=== PATIENT | male | born 1995 | race American Indian/Alaskan Native ===

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

== ENCOUNTER 2017-05-25 17:42 | Emergency (ER) | payer MEDICAID ==
[2017-05-25 18:09] VITALS: BP 121/68
--- NOTE | 2017-05-25 19:47 | Emergency Department Report ---
Vomiting/Diarrhea - HPI Chief Complaint: Nausea/Vomiting/Diarrhea Stated Complaint: STOMACH VIRUS Time Seen by Provider: 05/25/17 19:28 Duration: 2 Days Severity: mild, moderate Nausea/Vomiting Severity: None Diarrhea Severity: Mild Pain Location: Generalized Pain Severity: Mild Symptoms: Yes Watery Diarrhea, Yes Able to Tolerate Fluids, No Bloody diarrhea, No Fever, No Recent Unusual Foods, No Recent Untreated Water, No Recent use of Antibiotics, No Family w/ Similar Symptoms, No Contacts w/ Similar Symptoms, No Rash, No Hematuria, No Recent URI Symptoms ED Review of Systems ROS: Stated complaint: STOMACH VIRUS Other details as noted in HPI Comment: All other systems reviewed and negative ED Past Medical Hx - Past Medical History Previous Medical History?: No - Surgical History Past Surgical History?: No - Social History Smoking Status: Never Smoker Substance Use Type: None - Medications Home Medications: Home Medications Medication Instructions Recorded Confirmed Last Taken Type Ibuprofen [Motrin 800 MG tab] 800 mg PO Q8HR PRN #25 tablet 01/25/16 Unknown Rx Ibuprofen [Motrin] 800 mg PO Q8HR PRN #15 tablet 05/30/16 Unknown Rx traMADol [Ultram 50 MG tab] 50 mg PO Q6HR PRN #15 tablet 05/30/16 Unknown Rx Dicyclomine [Bentyl] 10 mg PO QID 2 Days capsule 05/25/17 Unknown Rx Diphenoxylate HCl/Atropine 1 each PO BID #4 tablet 05/25/17 Unknown Rx [Lomotil 2.5-0.025 mg Tablet] Vomiting Diarrhea Exam - Exam General: Vital signs noted. No distress. Alert and acting appropriately. HEENT: Yes Moist Mucous Membranes, No Pharyngeal Erythema, No Pharyngeal Exudates, No Rhinorrhea, No Conjuctival Injection, No Frontal Tenderness, No Maxillary Tenderness Neck: No Adenopathy, No Rigidity Lungs: Yes Clear Lung Sounds, Yes Good Air Exchange, No Wheezes, No Stridor, No Cough, No Nasal Flaring, No Retractions, No Use of Accessory Muscles Heart exam: Regular: Yes, Murmur: No, Tachycardia: No Abdomen: Tenderness: No, Peritoneal Signs: No, Distention: No, Hyperactive Bowel sounds: No Skin exam: Rash: No, Edema: No, Normal turgor: Yes Neurologic: Alert and oriented, no deficits. Musculoskeletal: Unremarkable. ED Course Vital Signs 05/25/17 18:04 Temperature 98.4 F Pulse Rate 70 Respiratory 18 Rate Blood Pressure 121/68 O2 Sat by Pulse 98 Oximetry ED Medical Decision Making - Medical Decision Making Patient with a very mild gastroenteritis patient be given Bentyl and Lomotil and be discharged home Critical care attestation.: If time is entered above; I have spent that time in minutes in the direct care of this critically ill patient, excluding procedure time. ED Disposition Clinical Impression: Viral gastroenteritis Disposition: DC-01 TO HOME OR SELFCARE Is pt being admited?: No Does the pt Need Aspirin: No Condition: Stable Instructions: Gastroenteritis (ED) Prescriptions: Dicyclomine [Bentyl] 10 mg PO QID 2 Days capsule Diphenoxylate HCl/Atropine [Lomotil 2.5-0.025 mg Tablet] 1 each PO BID #4 tablet Referrals: PRIMARY CARE, [Primary Care Provider] - 3-5 Days Forms: Work/School Release Form(ED)
== END 2017-05-25 19:57 | disposition home or self-care (01) ==
LOC: ED 17:42
DX: A08.39 Other viral enteritis (principal)
CPT/HCPCS: 99282

== ENCOUNTER 2018-04-16 13:32 | Emergency (ER) | payer MEDICAID ==
[2018-04-16 13:37] VITALS: BP 144/86
--- NOTE | 2018-04-16 14:46 | Emergency Department Report ---
ED Male HPI - General Chief complaint: Urogenital-Male Stated complaint: POSS STD Time Seen by Provider: 04/16/18 14:14 Source: patient Mode of arrival: Ambulatory Limitations: No Limitations - History of Present Illness Initial comments: This is a 22-year-old male nontoxic, well nourished in appearance, no acute signs of distress presents to the ED with c/o of mild dysuria. Patient denies any testicular pain or swelling. Patient denies any penile discharge. Patient stated he is concerned about STD. Patient denies any penile ulcers or lesions. Patient denies any nausea, vomiting, chest pain, shortness of breathe, fever, chills, headache, back pain, numbness, tingling, stiff neck. Patient denies any other urinary symptoms. Patient denies any allergies or PMH. MD Complaint: dysuria -: week(s) Location: penis Radiation: none Severity: mild Severity scale (0 -10): 3 Consistency: constant Improves with: none Worsens with: urination dysuria. denies: discharge, swelling, mass, rash, urinary retention, blood in urine, fever, nausea/vomiting, incontinence - Related Data Previous Rx's Medication Instructions Recorded Last Taken Type Ibuprofen [Motrin 800 MG tab] 800 mg PO Q8HR PRN #25 tablet 01/25/16 Unknown Rx Ibuprofen [Motrin] 800 mg PO Q8HR PRN #15 tablet 05/30/16 Unknown Rx traMADol [Ultram 50 MG tab] 50 mg PO Q6HR PRN #15 tablet 05/30/16 Unknown Rx Dicyclomine [Bentyl] 10 mg PO QID 2 Days capsule 05/25/17 Unknown Rx Diphenoxylate HCl/Atropine 1 each PO BID #4 tablet 05/25/17 Unknown Rx [Lomotil 2.5-0.025 mg Tablet] Allergies Allergy/AdvReac Type Severity Reaction Status Date / Time No Known Allergies Allergy Verified 05/25/17 18:04 ED Review of Systems ROS: Stated complaint: POSS STD Other details as noted in HPI Constitutional: denies: chills, fever Eyes: denies: eye pain, eye discharge, vision change ENT: denies: ear pain, throat pain Respiratory: denies: cough, shortness of breath, wheezing Cardiovascular: denies: chest pain, palpitations Endocrine: no symptoms reported Gastrointestinal: denies: abdominal pain, nausea, diarrhea Genitourinary: dysuria. denies: urgency, frequency, hematuria Musculoskeletal: denies: back pain, joint swelling, arthralgia Skin: denies: rash, lesions Neurological: denies: headache, weakness, paresthesias Psychiatric: denies: anxiety, depression Hematological/Lymphatic: denies: easy bleeding, easy bruising ED Past Medical Hx - Past Medical History Previous Medical History?: No - Surgical History Past Surgical History?: No - Social History Smoking Status: Never Smoker Substance Use Type: None - Medications Home Medications: Home Medications Medication Instructions Recorded Confirmed Last Taken Type Ibuprofen [Motrin 800 MG tab] 800 mg PO Q8HR PRN #25 tablet 01/25/16 Unknown Rx Ibuprofen [Motrin] 800 mg PO Q8HR PRN #15 tablet 05/30/16 Unknown Rx traMADol [Ultram 50 MG tab] 50 mg PO Q6HR PRN #15 tablet 05/30/16 Unknown Rx Dicyclomine [Bentyl] 10 mg PO QID 2 Days capsule 05/25/17 Unknown Rx Diphenoxylate HCl/Atropine 1 each PO BID #4 tablet 05/25/17 Unknown Rx [Lomotil 2.5-0.025 mg Tablet] ED Physical Exam - General Limitations: No Limitations General appearance: alert, in no apparent distress - Head Head exam: Present: atraumatic, normocephalic - Neck Neck exam: Present: normal inspection, full ROM - Extremities Exam Extremities exam: Present: normal inspection, full ROM - Back Exam Back exam: Present: normal inspection, full ROM - Neurological Exam Neurological exam: Present: alert, oriented X3 - Psychiatric Psychiatric exam: Present: normal affect, normal mood - Skin Skin exam: Present: warm, dry, intact, normal color. Absent: rash ED Course Vital Signs 04/16/18 13:35 Temperature 98 F Pulse Rate 78 Respiratory 16 Rate Blood Pressure 144/86 O2 Sat by Pulse 100 Oximetry - Reevaluation(s) Reevaluation #1: 04/16/18 14:45 Patient is speaking in full sentences with no signs of distress noted. ED Medical Decision Making - Medical Decision Making This is a 22-year-old male that presents with possible STD and dysuria. Patient is stable was examined by me. There is no abdominal tenderness. UA obtained. Gonorrhea chlamydia pending. Patient was instructed to return in 3-5 days for GC results. Patient wanted empirical treatment so patient received 250mg Rocephin and 1 g of azithromycin by mouth. Patient was instructed to Follow-up with a primary care doctor in 3-5 days or if symptoms worsen and continue return to emergency room as soon as possible. At time of discharge, the patient does not seem toxic or ill in appearance. No acute signs of distress noted. Patient agrees to discharge treatment plan of care. No further questions noted by the patient. Critical care attestation.: If time is entered above; I have spent that time in minutes in the direct care of this critically ill patient, excluding procedure time. ED Disposition Clinical Impression: Possible exposure to STD, Dysuria Disposition: - TO HOME OR SELFCARE Is pt being admited?: No Does the pt Need Aspirin: No Condition: Stable Instructions: Safe Sex (ED) Additional Instructions: Follow-up with a primary care doctor in 3-5 days or if symptoms worsen and continue return to emergency room as soon as possible. Return in 3-5 days for gonorrhea and chlamydia results. Referrals: PRIMARY CAREMD [Referring] - 3-5 Days CHARLES RO MD [Staff Physician] - 3-5 Days [facility] [Outside] - 3-5 Days [facility] [Outside] - 3-5 Days Forms: Work/School Release Form(ED)
[2018-04-16 14:48] LABS: Bacteria,Urine 1+ /HPF (Negative); Bilirubin,Urine NEG (Negative); Blood,Urine NEG (Negative); Color,Urine Yellow (Yellow); Mucus,Urine FEW /HPF; Protein,Urine <15 mg/dL mg/dL (Negative)
[2018-04-16] MEDS ORDERED: XYLOCAINE 1% MPF 5 mL INFILTRATI ONE (14:50)
[2018-04-16] MEDS ORDERED: ZITHROMAX PO ONE (14:50)
[2018-04-16] MEDS ORDERED: ROCEPHIN IM ONE (14:50)
== END 2018-04-16 15:14 | disposition home or self-care (01) ==
LOC: ED 13:32
DX: R30.0 Dysuria (principal)
CPT/HCPCS: 81001; 87086; 87591; 96372; 99283; J0696

== ENCOUNTER 2018-10-16 12:54 | Emergency (ER) | payer MEDICAID ==
--- NOTE | 2018-10-16 13:20 | Emergency Department Report ---
Blank Doc - Documentation Documentation: This is a 23-year-old male that presents with right hand pain after playing ba sketball. This initial assessment/diagnostic orders/clinical plan/treatment(s) is/are subject to change based on patient's health status, clinical progression and re- assessment by fellow clinical providers in the ED. Further treatment and workup at subsequent clinical providers discretion. Patient/guardians urged not to elope from the ED as their condition may be serious if not clinically assessed and managed. Initial orders include: 1- Patient sent to [facility] for further evaluation and treatment 2- xray
[2018-10-16 13:23] VITALS: BP 119/76
--- NOTE | 2018-10-16 13:58 | XRay Report ---
RIGHT HAND, 3 VIEWS INDICATION: Pain, hurt while playing basketball.. COMPARISON: None. IMPRESSION: Normal bone mineralization. A small bony fragment is noted adjacent to the base of the m iddle phalanx of the second digit. This could represent a chip or avulsion fracture. This may be microsoft developer kanu as it appears well-corticated. Please correlate for point tenderness. The remaining bony structur es are intact and unremarkable. No significant DJD. The soft tissues are unremarkable. Signer Name: Dedrick Gómez Jr, MD Signed: 10/16/2018 1:54 PM Workstation Name: [id number]
--- NOTE | 2018-10-16 14:23 | Emergency Department Report ---
ED Extremity Problem HPI - General Chief complaint: Extremity Injury, Upper Stated complaint: R HAND/FINGER PAIN Time Seen by Provider: 10/16/18 13:19 Source: patient Mode of arrival: Ambulatory Limitations: No Limitations - History of Present Illness Initial comments: Avril is a 23-year-old male who injured his right hand playing basketball on yesterday. He has pain at the second MCP. Mild swelling. No laceration. No other injuries. Mild pain. Gradual onset. MD Complaint: extremity pain, extremity swelling -: Gradual Location: right, upper extremity History of Same: No Radiation: none Quality: aching Consistency: constant Worsens with: palpation - Related Data Previous Rx's Medication Instructions Recorded Last Taken Type Ibuprofen [Motrin 800 MG tab] 800 mg PO Q8HR PRN #25 tablet 01/25/16 Unknown Rx Ibuprofen [Motrin] 800 mg PO Q8HR PRN #15 tablet 05/30/16 Unknown Rx traMADol [Ultram 50 MG tab] 50 mg PO Q6HR PRN #15 tablet 05/30/16 Unknown Rx Dicyclomine [Bentyl] 10 mg PO QID 2 Days capsule 05/25/17 Unknown Rx Diphenoxylate HCl/Atropine 1 each PO BID #4 tablet 05/25/17 Unknown Rx [Lomotil 2.5-0.025 mg Tablet] Allergies Allergy/AdvReac Type Severity Reaction Status Date / Time No Known Allergies Allergy Verified 10/16/18 13:02 ED Review of Systems ROS: Stated complaint: R HAND/FINGER PAIN Other details as noted in HPI Constitutional: denies: fever, malaise Skin: denies: rash, lesions Neurological: denies: numbness, paresthesias Hematological/Lymphatic: denies: easy bleeding ED Past Medical Hx - Past Medical History Previous Medical History?: No - Surgical History Past Surgical History?: No - Social History Smoking Status: Never Smoker Substance Use Type: Alcohol - Medications Home Medications: Home Medications Medication Instructions Recorded Confirmed Last Taken Type Ibuprofen [Motrin 800 MG tab] 800 mg PO Q8HR PRN #25 tablet 01/25/16 Unknown Rx Ibuprofen [Motrin] 800 mg PO Q8HR PRN #15 tablet 05/30/16 Unknown Rx traMADol [Ultram 50 MG tab] 50 mg PO Q6HR PRN #15 tablet 05/30/16 Unknown Rx Dicyclomine [Bentyl] 10 mg PO QID 2 Days capsule 05/25/17 Unknown Rx Diphenoxylate HCl/Atropine 1 each PO BID #4 tablet 05/25/17 Unknown Rx [Lomotil 2.5-0.025 mg Tablet] ED Physical Exam - General Limitations: No Limitations General appearance: alert, in no apparent distress - Expanded Upper Extremity Exam Right Forearm Wrist exam: Present: normal inspection, full ROM. Absent: tenderness, swelling, abrasion Hand Wrist exam: Present: other (tenderness at the second MCP no tenderness throughout the digits otherwise no deformity no laceration. Range of motion at MCP and DIP PIP of all digits.) - Neurological Exam Neurological exam: Present: alert, oriented X3 - Psychiatric Psychiatric exam: Present: normal affect, normal mood ED Course Vital Signs 10/16/18 13:19 Temperature 98.8 F Pulse Rate 75 Respiratory 18 Rate Blood Pressure 119/76 O2 Sat by Pulse 99 Oximetry ED Medical Decision Making - Medical Decision Making hand sprain finger sprain, no indication of acute fracture although bone avulsion was seen on radiographs according to radiology report. Patient had a finger aluminum splint applied to the second digit with Cortez wrap. Recommended rest and ice. Critical care attestation.: If time is entered above; I have spent that time in minutes in the direct care of this critically ill patient, excluding procedure time. ED Disposition Clinical Impression: Finger sprain, Hand sprain Disposition: - TO HOME OR SELFCARE Is pt being admited?: No Does the pt Need Aspirin: No Condition: Stable Instructions: Jammed Finger (ED), Finger Sprain (ED) Referrals: SHARAN PETTIT MD [Primary Care Provider] - 3-5 Days Forms: Work/School Release Form(ED)
== END 2018-10-16 14:35 | disposition home or self-care (01) ==
LOC: ED 12:54
DX: S63.650A Sprain of metacarpophalangeal joint of right index finger, initial encounter (principal); Z79.899 Other long term (current) drug therapy; X58.XXXA Exposure to other specified factors, initial encounter; Y93.67 Activity, basketball; Y92.89 Other specified places as the place of occurrence of the external cause; Y99.8 Other external cause status
CPT/HCPCS: 99283

== ENCOUNTER 2020-03-17 12:19 | Emergency (ER) | payer SELFPAY ==
[2020-03-17 12:34] VITALS: BP 141/85
--- NOTE | 2020-03-17 13:25 | Emergency Department Report ---
Blank Doc - Documentation Documentation: 24-year-old male that presents with chest tightness and pain. Stated had a trip and fall on ice and landed to chest. This initial assessment/diagnostic orders/clinical plan/treatment(s) is/are subject to change based on patient's health status, clinical progression and re-assessment by fellow clinical providers in the ED. Further treatment and workup at subsequent clinical providers discretion. Patient/guardians urged not to elope from the ED as their condition may be serious if not clinically assessed and managed. Initial orders include: 1- Patient sent to [facility] for further evaluation and treatment 2- CXR 3- EKG
--- NOTE | 2020-03-17 15:17 | XRay Report ---
CHEST 2 VIEWS INDICATION / CLINICAL INFORMATION: Chest pain. COMPARISON: None available. FINDINGS: SUPPORT DEVICES: None. HEART / MEDIASTINUM: No significant abnormality. LUNGS / PLEURA: No significant pulmonary or pleural abnormality. No pneumothorax. ADDITIONAL FINDINGS: No significant additional findings. IMPRESSION: 1. No acute abnormality of the chest. Signer Name: Miguel Samuel MD Signed: 03/17/2020 3:13 PM Workstation Name: [id number]
--- NOTE | 2020-03-17 15:39 | Emergency Department Report ---
ED General Adult HPI - General Chief complaint: Multiple Trauma Stated complaint: CHEST PAIN Time Seen by Provider: 03/17/20 13:23 Source: patient Mode of arrival: Ambulatory Limitations: No Limitations - History of Present Illness Initial comments: 24-year-old male presenting with chief complaint of chest pain, gradual onset over the past week. The patient states that about 1 week ago he slipped on the ice while trying to connect a trailer and landed on his chest and right shoulder. He states that his right shoulder was sore for a day or 2 but that has resolved and now he just has intermittent soreness throughout the middle of his chest. He states that it does not occur very often but he primarily notices it when he is moving certain ways especially at night. Denies any difficulty in breathing, fevers, cough or any other related symptoms. Severity is mild. - Related Data Previous Rx's Medication Instructions Recorded Last Taken Type Ibuprofen [Motrin 800 MG tab] 800 mg PO Q8HR PRN #25 tablet 01/25/16 Unknown Rx Ibuprofen [Motrin] 800 mg PO Q8HR PRN #15 tablet 05/30/16 Unknown Rx traMADoL [Ultram 50 MG tab] 50 mg PO Q6HR PRN #15 tablet 05/30/16 Unknown Rx Dicyclomine [Bentyl] 10 mg PO QID 2 Days capsule 05/25/17 Unknown Rx Diphenoxylate HCl/Atropine 1 each PO BID #4 tablet 05/25/17 Unknown Rx [Lomotil 2.5-0.025 mg Tablet] Allergies Allergy/AdvReac Type Severity Reaction Status Date / Time No Known Allergies Allergy Verified 10/16/18 13:02 ED Review of Systems ROS: Stated complaint: CHEST PAIN Other details as noted in HPI Comment: All other systems reviewed and negative Cardiovascular: as per HPI ED Past Medical Hx - Past Medical History Previous Medical History?: No - Surgical History Past Surgical History?: No - Social History Smoking Status: Never Smoker Substance Use Type: None - Medications Home Medications: Home Medications Medication Instructions Recorded Confirmed Last Taken Type Ibuprofen [Motrin 800 MG tab] 800 mg PO Q8HR PRN #25 tablet 01/25/16 Unknown Rx Ibuprofen [Motrin] 800 mg PO Q8HR PRN #15 tablet 05/30/16 Unknown Rx traMADoL [Ultram 50 MG tab] 50 mg PO Q6HR PRN #15 tablet 05/30/16 Unknown Rx Dicyclomine [Bentyl] 10 mg PO QID 2 Days capsule 05/25/17 Unknown Rx Diphenoxylate HCl/Atropine 1 each PO BID #4 tablet 05/25/17 Unknown Rx [Lomotil 2.5-0.025 mg Tablet] ED Physical Exam - General Limitations: No Limitations General appearance: alert, in no apparent distress - Head Head exam: Present: atraumatic, normocephalic - Eye Eye exam: Present: normal appearance - ENT ENT exam: Present: mucous membranes moist - Neck Neck exam: Present: normal inspection - Respiratory Respiratory exam: Present: normal lung sounds bilaterally. Absent: respiratory distress, wheezes - Cardiovascular Cardiovascular Exam: Present: regular rate, normal rhythm. Absent: systolic murmur, diastolic murmur, rubs, gallop - GI/Abdominal GI/Abdominal exam: Present: soft, normal bowel sounds - Rectal Rectal exam: Present: deferred - Extremities Exam Extremities exam: Present: normal inspection - Back Exam Back exam: Present: normal inspection - Neurological Exam Neurological exam: Present: alert, oriented X3 - Psychiatric Psychiatric exam: Present: normal affect, normal mood - Skin Skin exam: Present: warm, dry, intact, normal color. Absent: rash ED Course Vital Signs 03/17/20 12:33 Temperature 98.1 F Pulse Rate 101 H Respiratory 18 Rate Blood Pressure 141/85 [Right] O2 Sat by Pulse 97 Oximetry ED Medical Decision Making - EKG Data -: EKG Interpreted by Me EKG shows normal: sinus rhythm, axis, intervals, QRS complexes, ST-T waves Rate: normal - Radiology Data Radiology results: report reviewed neg cxr - Medical Decision Making 24-year-old male presenting with chest pain that began about 1 week ago after slipping and falling on the ice. He states it is very intermittent in nature primarily only when he moves certain directions and has no pain right now. His examination is normal. Chest x-ray was obtained to rule out any obvious rib fractures or pneumothorax and is negative. Recommend supportive care and outpatient PCP follow-up. Offered NSAIDs but he declined prescriptions. - Differential Diagnosis Contusion, fracture, pneumothorax Critical care attestation.: If time is entered above; I have spent that time in minutes in the direct care of this critically ill patient, excluding procedure time. ED Disposition Clinical Impression: Contusion, chest wall Qualifiers: Encounter type: initial encounter Laterality: unspecified laterality Qualified Code(s): S20.219A - Contusion of unspecified front wall of thorax, initial encounter Disposition: DC-01 TO HOME OR SELFCARE Is pt being admited?: No Condition: Good Instructions: Rib Contusion Referrals: PRIMARY CARE,MD [Primary Care Provider] - 3-5 Days Time of Disposition: 15:38
== END 2020-03-17 16:03 | disposition home or self-care (01) ==
LOC: ED 12:19
DX: S20.219A Contusion of unspecified front wall of thorax, initial encounter (principal); Z79.899 Other long term (current) drug therapy; W00.0XXA Fall on same level due to ice and snow, initial encounter; Y93.89 Activity, other specified; Y92.89 Other specified places as the place of occurrence of the external cause; Y99.8 Other external cause status
CPT/HCPCS: 71046; 93005

== ENCOUNTER 2020-08-13 10:27 | Emergency (ER) | payer BC, OTHER ==
[2020-08-13 10:55] VITALS: BP 137/84
--- NOTE | 2020-08-13 11:31 | XRay Report ---
CHEST 2 VIEWS INDICATION / CLINICAL INFORMATION: chest pain. COMPARISON: 03/17/2020 FINDINGS: SUPPORT DEVICES: None. HEART / MEDIASTINUM: No significant abnormality. LUNGS / PLEURA: No significant pulmonary or pleural abnormality. No pneumothorax. ADDITIONAL FINDINGS: No significant additional findings. IMPRESSION: No significant abnormality or interval change from 03/17/2020 Signer Name: Edward Coleman MD FACR Signed: 08/13/2020 11:26 AM Workstation Name: [email or web address]
--- NOTE | 2020-08-13 11:37 | Emergency Department Report ---
ED Chest Pain HPI - General Chief Complaint: Chest Pain Stated Complaint: CHEST PAIN, HEADACHES Time Seen by Provider: 08/13/20 11:10 Source: patient Mode of arrival: Ambulatory Limitations: No Limitations - History of Present Illness Initial Comments: 25-year-old male who has no significant past history presents to the ER today with complaints of chest pain and a headache. Patient states that he has been having left-sided chest pain intermittently for 1 month. He states that sometimes it feels like somebody is pinching his chest so sometimes feels like a squeezing sensation. He is unable to describe any modifying factors. He denies any associated shortness of breath, cough, wheezing, nausea or vomiting or abdominal pain. 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 He denies any history of PE or DVT. Patient states that he has been having diffuse intermittent headache for about a month and a howe lf. He states that he gets some nausea at times but denies any other associated symptoms with the headache. He denies any head injury. He denies neck pain. He denies any focal weakness, numbness or tingling. He denies any history of headaches. He states that he has not been taking anything [id number] for the headache nor a chest pain. He denies any illicit drug or ETOH use. MD Complaint: chest pain, other (HOWE) -: week(s) (1-1.5 mths ) - Related Data Previous Rx's Medication Instructions Recorded Last Taken Type Ketorolac [Toradol] 10 mg PO Q6H PRN #20 tablet 08/13/20 Unknown Rx Allergies Allergy/AdvReac Type Severity Reaction Status Date / Time No Known Allergies Allergy Verified 08/13/20 10:55 Heart Score - HEART Score History: Slightly suspicious EKG: Normal Age: < 45 Risk factors: No known risk factors Troponin: < normal limit HEART Score: 0 - EKG Read Time Time EKG Completed: 11:00 EKG Read Time: 11:05 ED Review of Systems ROS: Stated complaint: CHEST PAIN, HEADACHES Other details as noted in HPI Comment: All other systems reviewed and negative Constitutional: denies: chills, fever Eyes: denies: eye pain, eye discharge, vision change ENT: denies: ear pain, throat pain Respiratory: denies: cough, shortness of breath, SOB with exertion, SOB at rest, wheezing Cardiovascular: chest pain. denies: palpitations, dyspnea on exertion, orthopnea, edema, syncope, paroxysmal nocturnal dyspnea Gastrointestinal: denies: abdominal pain, nausea, vomiting, diarrhea, constipation, hematemesis, melena, hematochezia Genitourinary: denies: urgency, dysuria, frequency, hematuria, discharge, testicular pain, testicular mass Musculoskeletal: denies: back pain, joint swelling, arthralgia Skin: denies: rash, lesions, change in color, change in hair/nails, pruritus Neurological: headache. denies: weakness, numbness, paresthesias, confusion, abnormal gait, vertigo Psychiatric: denies: anxiety, depression, auditory hallucinations, visual hallu cinations, homicidal thoughts, suicidal thoughts Hematological/Lymphatic: denies: easy bleeding, easy bruising ED Past Medical Hx - Social History Smoking Status: Never Smoker Substance Use Type: None - Medications Home Medications: Home Medications Medication Instructions Recorded Confirmed Last Taken Type Ketorolac [Toradol] 10 mg PO Q6H PRN #20 tablet 08/13/20 Unknown Rx ED Physical Exam - General Limitations: No Limitations General appearance: alert, in no apparent distress - Head Head exam: Present: atraumatic, normocephalic, normal inspection - Eye Eye exam: Present: normal appearance, PERRL, EOMI Pupils: Present: normal accommodation - ENT ENT exam: Present: normal exam, mucous membranes moist, TM's normal bilaterally - Neck Neck exam: Present: normal inspection, full ROM. Absent: meningismus - Respiratory Respiratory exam: Present: normal lung sounds bilaterally. Absent: respiratory distress, wheezes, rales, rhonchi, chest wall tenderness - Cardiovascular Cardiovascular Exam: Present: regular rate, normal rhythm, normal heart sounds - GI/Abdominal GI/Abdominal exam: Present: soft. Absent: distended, tenderness, guarding, rebound - Extremities Exam Extremities exam: Present: normal inspection, full ROM, normal capillary refill. Absent: tenderness, pedal edema, joint swelling, calf tenderness - Neurological Exam Neurological exam: Present: alert, oriented X3, CN II-XII intact, normal gait. Absent: motor sensory deficit - Psychiatric Psychiatric exam: Present: normal affect, normal mood - Skin Skin exam: Present: intact ED Course Vital Signs 08/13/20 10:53 Pulse Rate 74 Respiratory 20 Rate Blood Pressure 137/84 O2 Sat by Pulse 98 Oximetry SAMAN score - Saman Score Age > 65: (0) No Aspirin use within the Past 7 Days: (0) No 3 or more CAD Risk Factors: (0) No 2 or more Angina events in past 24 hrs: (0) No Known CAD with more than 50% Stenosis: (0) No Elevated Cardiac Markers: (0) No ST Deviation Greater than 0.5mm: (0) No SAMAN Score: 0 ED Medical Decision Making - Lab Data Result diagrams: 08/13/20 11:54 08/13/20 11:54 - EKG Data EKG shows normal: sinus rhythm Rate: normal (68) No standard instances [place]/QRS: IVCD (non specific) - Radiology Data Radiology results: report reviewed Patient: EVANGELINA KEYS MR#: [id number] : 1995 Acct:[id number] Age/Sex: 25 / M ADM Date: 08/13/20 Loc: ED Attending Dr: Ordering Physician: ED MD JOHN Date of Service: 08/13/20 Procedure(s): XR chest routine 2V Accession Number(s): [id number] cc: ED MD JOHN Fluoro Time In Minutes: CHEST 2 VIEWS INDICATION / CLINICAL INFORMATION: chest pain. COMPARISON: 03/17/2020 FINDINGS: SUPPORT DEVICES: None. HEART / MEDIASTINUM: No significant abnormality. LUNGS / PLEURA: No significant pulmonary or pleural abnormality. No pneumothorax. ADDITIONAL FINDINGS: No significant additional findings. IMPRESSION: No significant abnormality or interval change from 03/17/2020 Signer Name: Edward Coleman MD FACR Signed: 08/13/2020 11:26 AM Workstation Name: [id number] Transcribed By: MS Dictated By: Edward Coleman MD Electronically Authenticated By: Edward Coleman MD Signed Date/Time: 08/13/20 112 DD/ 1126 TD/TT: - Medical Decision Making Patient presents with c/o of left sided chest pain x 1 mth and HOWE x 1.5mths Labs/xray reviewed and unremarkable. EKG shows no acute ischemic changes/STEMI or significant dysrhythmias. Patient is well-appearing, not toxic and not in any pain or respiratory distress. Patient is awake alert oriented x3. He is neurologically intact and ambulatory in the ER. His VS are stable His history, exam, diagnostic testing and current condition do not suggest that this patient is having acute myocardial infarction, significant arrhythmia, unstable angina, esophageal perforation, pulmonary embolism (PERC 0), aortic dissection, pneumothorax, severe pneumonia, meningitis, stroke,, subarachnoid hemorrhage, intracranial bleeding, encephalitis,sepsis or other significant pathology that would warrant further testing, continued ED treatment, admission or cardiology/neurology or other specialist consultation at this time. Discussed lab/imaging results with patient. Recommend close f/u with PCP in next few days but he understands to return to ED if symptoms worsens or changes. Critical care attestation.: If time is entered above; I have spent that time in minutes in the direct care of this critically ill patient, excluding procedure time. ED Disposition Clinical Impression: Atypical chest pain, Headache Disposition: - TO HOME OR SELFCARE Is pt being admited?: No Does the pt Need Aspirin: No Condition: Stable Instructions: General Headache Without Cause, Nonspecific Chest Pain, Adult Additional Instructions: Take the toradol as prescribed. I recommend close follow up with PCP listed on y our d/c instructions. Return to ED if worse. Prescriptions: Ketorolac [Toradol] 10 mg PO Q6H PRN #20 tablet PRN Reason: Pain Referrals: PRIMARY CAREMD [Primary Care Provider] - 3-5 Days EWA THOMAS MD [Staff Physician] - 3-5 Days Forms: Work/School Release Form(ED) Time of Disposition: 13:20
[2020-08-13 12:11] LABS: Basophils # (Auto) 0.1 K/mm3 (0.0-0.1); Basophils % (Auto) 1.5 % (0.0-1.8); Eosinophils # (Auto) 0.4 K/mm3 (0.0-0.4); Eosinophils % (Auto) 4.2 % (0.0-4.3); Hematocrit 42.1 % (35.5-45.6); Hemoglobin 14.2 gm/dl (11.8-15.2); Lymphocytes # (Auto) 0.6 K/mm3 (1.2-5.4); Mean Corpuscular HGB Conc 34 % (32-34); Mean Corpuscular Volume 83 fl (84-94); Monocytes % (Auto) 10.5 % (0.0-7.3); Platelet Count 206 K/mm3 (140-440); Red Cell Distribution Width 14.7 % (13.2-15.2)
[2020-08-13 12:34] LABS: Alanine Aminotransferase 36 units/L (7-56); BUN/Creatinine Ratio 13; Blood Urea Nitrogen 10 mg/dL (9-20); Calcium 8.9 mg/dL (8.4-10.2); Hemolysis Index 3
--- NOTE | 2020-08-13 14:52 | Electrocardiograph Report ---
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
== END 2020-08-13 13:25 | disposition home or self-care (01) ==
LOC: ED 10:27
DX: R07.89 Other chest pain (principal); R51.9 Headache, unspecified; Z79.899 Other long term (current) drug therapy
CPT/HCPCS: 36415; 71046; 80053; 83690; 83735; 84484; 85025; 93005